=== PATIENT | female | born 1945 | race Caucasian/White ===

== ENCOUNTER 2018-05-29 14:39 | Emergency (ER) | payer MEDICARE, BC ==
[~2018-05-29] VITALS: Ht 160 cm; Wt 45.5 kg
[2018-05-29] MEDS ORDERED: normal saline 1000ML IV soln IVB ONE (15:10)
[2018-05-29] MEDS ORDERED: BENA20TA82 PO (15:20)
[2018-05-29] MEDS ORDERED: LABE100T5 PO (15:20)
[2018-05-29] MEDS ORDERED: AMLO10TA PO (15:20)
[2018-05-29] MEDS ORDERED: VAL5T PO (15:20)
[2018-05-29] MEDS ORDERED: ASPI-1053 PO (15:20)
[2018-05-29] MEDS ORDERED: TIOT4MIS5 IH (15:20)
[2018-05-29] MEDS ORDERED: METH-360 PO (15:20)
[2018-05-29] MEDS ORDERED: HYDR-4384 PO (15:20)
[2018-05-29] MEDS ORDERED: ZOLP10TA5 PO (15:20)
[2018-05-29] MEDS ORDERED: DULO-31 PO (15:20)
[2018-05-29] MEDS ORDERED: ALBU8.5H8 INH (15:20)
[2018-05-29] MEDS ORDERED: CYAN10006 IM (15:20)
[2018-05-29 15:39] LABS: BASOPHILS % (AUTO) 0.4 % (0-1); EOSINOPHILS # (AUTO) 0.1 X10'3 (0-0.9); EOSINOPHILS % (AUTO) 1.2 % (0-6); HEMATOCRIT 33.4 % (35.0-45.0); HEMOGLOBIN 11.1 g/dl (12.0-16.0); LYMPHOCYTES # (AUTO) 0.5 X10'3 (1.1-4.8); LYMPHOCYTES % (AUTO) 7.1 % (21-51); MEAN CORPUSCULAR HEMOGLOBIN 30.7 PG (27.0-31.0); MEAN CORPUSCULAR HGB CONC 33.4 % (33.0-36.5); MEAN CORPUSCULAR VOLUME 91.8 FL (78-98); MEAN PLATELET VOLUME 7.1 FL (7.4-10.4); MONOCYTES # (AUTO) 0.3 X10'3 (0-0.9); MONOCYTES % (AUTO) 4.8 % (2-12); NEUTROPHILS # (AUTO) 6.3 X10'3 (1.8-7.7); NEUTROPHILS % (AUTO) 86.5 % (42-75); PLATELET COUNT 186 X10'3 (140-440); RED BLOOD COUNT 3.63 X10'6 (4.20-5.60); RED CELL DISTRIBUTION WIDTH 14.9 % (11.5-14.5); WHITE BLOOD COUNT 7.2 X10'3 (4.5-11.0)
[2018-05-29 15:42] LABS: ALANINE AMINOTRANSFERASE 57 U/L (12-78); ALBUMIN 3.4 G/DL (3.4-5.0); ALBUMIN/GLOBULIN RATIO 1.4 (1.1-1.5); ALKALINE PHOSPHATASE 84 IU/L (46-116); ANION GAP 8 (8-16); ASPARTATE AMINO TRANSFERASE 94 U/L (10-37); BILIRUBIN,TOTAL 0.4 MG/DL (0.1-1.0); BLOOD UREA NITROGEN 32 MG/DL (7-18); BUN/CREATININE RATIO 33.3 (6.6-38.0); CALCIUM 7.9 MG/DL (8.5-10.1); CHLORIDE 104 MMOL/L (99-107); CREATININE 0.96 MG/DL (0.40-0.90); GLUCOSE 105 MG/DL (70-104); POTASSIUM 3.5 MMOL/L (3.5-5.1); SODIUM 143 MMOL/L (135-145); TOTAL CARBON DIOXIDE 31.2 MMOL/L (24-32); TOTAL PROTEIN 5.8 G/DL (6.4-8.2); eGFR 57 ML/MIN
[2018-05-29 15:50] LABS: ETHANOL < 0.010 GM/DL (0.0-0.010)
[2018-05-29 16:24] LABS: CLARITY,URINE CLEAR (Clear); COLOR,URINE YELLOW (Yellow); GLUCOSE, URINE NEGATIVE (Neg); KETONES,URINE NEGATIVE (Neg); LEUKOCYTE ESTERASE ,URINE NEGATIVE (Neg); NITRITES, URINE NEGATIVE (Neg); OCCULT BLOOD,URINE NEGATIVE (Neg); PH,URINE 5.5 (4.8-8.0); PROTEIN,URINE NEGATIVE (Neg); UROBILINOGEN,URINE 0.2 E.U/dL (0.2-1.0)
[2018-05-29 16:30] LABS: UA COLLECTION TYPE STRAIGHT CATH
[2018-05-29 16:41] LABS: URINE AMPHETAMINE SCREEN NEGATIVE (Neg); URINE BARBITUATE SCREEN NEGATIVE (Neg); URINE BENZODIAZEPINES SCREEN POSITIVE (Neg); URINE CANNABINOID SCREEN NEGATIVE (Neg); URINE COCAINE SCREEN NEGATIVE (Neg); URINE METHADONE SCREEN NEGATIVE (Neg); URINE OPIATE SCREEN POSITIVE (Neg); URINE PHENCYCLIDINE SCREEN NEGATIVE (Neg)
[2018-05-29 16:48] LABS: ACETAMINOPHEN 12.3 UG/ML (10-30)
[2018-05-29] MEDS ORDERED: acetylcysteine 200 MG/ml 4ml vial PO ONE (19:20)
[2018-05-29] MEDS ORDERED: diazepam 5mg tablet PO PRN (21:10)
[2018-05-29] MEDS ORDERED: cyanocobalamin 1,000 mcg/ml inj IM SCH (21:10)
[2018-05-29] MEDS ORDERED: albuterol 2.5 MG/3 ML nebule NEB PRN (21:20)
[2018-05-29] MEDS ORDERED: cyclobenzaprine 10mg tablet PO PRN (21:25)
[2018-05-29 21:31] LABS: ACETAMINOPHEN < 2.0 UG/ML (10-30); ALANINE AMINOTRANSFERASE 59 U/L (12-78); ALBUMIN 3.3 G/DL (3.4-5.0); ALBUMIN/GLOBULIN RATIO 1.4 (1.1-1.5); ALKALINE PHOSPHATASE 84 IU/L (46-116); ASPARTATE AMINO TRANSFERASE 78 U/L (10-37); BILIRUBIN,DIRECT 0.1 MG/DL (0-0.3); BILIRUBIN,TOTAL 0.5 MG/DL (0.1-1.0); TOTAL PROTEIN 5.6 G/DL (6.4-8.2)
[2018-05-29] MEDS: lisinopril 20mg tablet PO SCH (21:32)
[2018-05-30] MEDS: ipratropium 0.5 MG/2.5ML nebule IH SCH ×4 (02:00→20:00)
[2018-05-30] MEDS: amLODIPine 5mg tablet PO SCH (08:23)
[2018-05-30] MEDS: aspirin 81mg tab.chew PO SCH (08:23)
[2018-05-30] MEDS: labetalol 100mg tablet PO SCH ×2 (08:23→20:05)
[2018-05-30] MEDS: duloxetine 30mg CAPSULE.DR PO SCH (08:26)
[2018-05-30] MEDS: lisinopril 20mg tablet PO SCH (20:05)
[2018-05-30] MEDS ORDERED: QUEtiapine 25mg tablet PO ONE ×2 (22:05→23:15)
[2018-05-30] MEDS ORDERED: quetiapine 100mg tablet PO ONE (23:00)
[2018-05-31] MEDS ORDERED: zolpidem 5mg tablet PO ONE (00:15)
[2018-05-31] MEDS: ipratropium 0.5 MG/2.5ML nebule IH SCH ×3 (02:00→14:00)
[2018-05-31] MEDS: duloxetine 30mg CAPSULE.DR PO SCH (08:16)
[2018-05-31] MEDS: aspirin 81mg tab.chew PO SCH (08:16)
[2018-05-31] MEDS: amLODIPine 5mg tablet PO SCH (08:17)
[2018-05-31] MEDS: labetalol 100mg tablet PO SCH (08:17)
[2018-05-31] MEDS ORDERED: ASPI-778 PO (11:36)
[2018-05-31 16:16] VITALS: BP 148/84
== END 2018-05-31 16:20 ==
LOC: ER 14:39
DX: T42.6X2A Poisoning by other antiepileptic and sedative-hypnotic drugs, intentional self-harm, initial encounter (principal); R45.851 Suicidal ideations; I10 Essential (primary) hypertension; G89.29 Other chronic pain; F32.9 Major depressive disorder, single episode, unspecified; Z79.82 Long term (current) use of aspirin; Z79.899 Other long term (current) drug therapy; Y92.89 Other specified places as the place of occurrence of the external cause
CPT/HCPCS: 36415; 70450; 80053; 80076; 80305; 80320; 80329; 81003; 84443; 85025; 94760; 96360; 96372; 99285; J3420

== ENCOUNTER 2018-05-31 15:17 | Inpatient (IN) | payer MEDICARE, BC ==
[~2018-05-31] VITALS: Ht 160 cm; Wt 48.4 kg
[~2018-05-31 15:17] MED LIST: ALBU8.5H8 INH; AMLO10TA PO; ASPI-1053 PO; ASPI-778 PO; BENA20TA82 PO; CYAN10006 IM; DULO-31 PO; HYDR-4384 PO; LABE100T5 PO; METH-360 PO; TIOT4MIS5 IH; VAL5T PO; ZOLP10TA5 PO
[2018-05-31] MEDS ORDERED: mag hydrox/Alum hydrox/simeth 30ml oral suspension PO PRN (16:30)
[2018-05-31] MEDS ORDERED: magnesium hydroxide 30ml (MOM) UD suspension PO PRN (16:30)
[2018-05-31] MEDS ORDERED: acetaminophen 325mg tablet PO PRN ×2 (16:30)
[2018-05-31 16:35] VITALS: BP 159/82
[2018-05-31 19:00] VITALS: BP 112/61
[2018-05-31] MEDS ORDERED: albuterol 2.5 MG/3 ML nebule NEB PRN (20:40)
[2018-05-31] MEDS ORDERED: aspirin/acetaminophen/caffeine tablet PO PRN (20:40)
[2018-05-31] MEDS ORDERED: HYDROcodone/acetaminophen 5mg/325mg tablet PO PRN (20:45)
[2018-05-31] MEDS ORDERED: zolpidem 5mg tablet PO PRN (20:50)
[2018-05-31] MEDS: lisinopril 20mg tablet PO SCH (21:12)
[2018-05-31] MEDS: cyclobenzaprine 10mg tablet PO PRN (21:19)
[2018-06-01] MEDS: ipratropium 0.5 MG/2.5ML nebule IH SCH ×4 (02:00→20:00)
[2018-06-01] MEDS: amLODIPine 5mg tablet PO SCH (08:07)
[2018-06-01] MEDS: duloxetine 30mg CAPSULE.DR PO SCH (08:07)
[2018-06-01] MEDS: labetalol 100mg tablet PO SCH ×2 (08:07→20:45)
[2018-06-01] MEDS ORDERED: aspirin 81mg tab.chew PO SCH (08:30)
[2018-06-01 08:41] LABS: CHOL/HDL RATIO 2.4 (0.00-4.99); CHOLESTEROL 154 MG/DL (0-200); HDL CHOLESTEROL 63 MG/DL (35-60); LDL CHOLESTEROL 81 MG/DL (50-100); TRIGLYCERIDES 59 MG/DL (20-135)
[2018-06-01 09:05] LABS: HEMOGLOBIN A1C 5.2 % (4.5-6.2)
[2018-06-01] MEDS ORDERED: ACETAMINOPHEN PO PRN (10:00)
[2018-06-01] MEDS ORDERED: cyanocobalamin 1,000 mcg/ml inj IM SCH (10:00)
[2018-06-01] MEDS ORDERED: cyclobenzaprine 10mg tablet PO PRN (10:00)
[2018-06-01] MEDS ORDERED: [UNRECOGNIZED DRUG - OTHER] PO PRN (10:00)
[2018-06-01] MEDS ORDERED: non-formulary drug (Benazepril Hcl* (Lotensin*) 1 TAB) PO SCH (10:00)
[2018-06-01] MEDS ORDERED: ASPIRIN PO PRN (10:00)
[2018-06-01] MEDS ORDERED: diazepam 5mg tablet PO PRN (10:00)
[2018-06-01] MEDS ORDERED: CAFFEINE PO PRN (10:00)
[2018-06-01] MEDS ORDERED: non-formulary drug (Albuterol Sulfate (Proair Hfa) 2 PUFFS) INH SCH (10:00)
[2018-06-01] MEDS: cyclobenzaprine 10mg tablet PO PRN (14:51)
[2018-06-01 19:00] VITALS: BP 156/76
[2018-06-01] MEDS: diazepam 5mg tablet PO PRN (19:24)
[2018-06-01] MEDS ORDERED: labetalol 100mg tablet PO SCH (20:00)
[2018-06-01] MEDS: lisinopril 20mg tablet PO SCH (20:45)
[2018-06-01] MEDS ORDERED: zolpidem 5mg tablet PO PRN (21:00)
[2018-06-01] MEDS ORDERED: mirtazapine 15mg tablet PO SCH (21:00)
[2018-06-01] MEDS ORDERED: traZODone 50mg tablet PO ONE (22:30)
[2018-06-02] MEDS: ipratropium 0.5 MG/2.5ML nebule IH SCH ×4 (03:07→19:56)
[2018-06-02] MEDS ORDERED: non-formulary drug (Amlodipine Besylate 1 TABLET) PO SCH (08:00)
[2018-06-02] MEDS ORDERED: duloxetine 30mg CAPSULE.DR PO SCH (08:00)
[2018-06-02] MEDS ORDERED: TIOTROPIUM BROMIDE 2.5 MCG IH SCH (08:00)
[2018-06-02] MEDS: labetalol 100mg tablet PO SCH ×2 (08:43→20:20)
[2018-06-02] MEDS: aspirin 81mg tablet.DR PO SCH (08:43)
[2018-06-02] MEDS: duloxetine 30mg CAPSULE.DR PO SCH (08:43)
[2018-06-02] MEDS: amLODIPine 5mg tablet PO SCH (08:43)
[2018-06-02] MEDS: cyclobenzaprine 10mg tablet PO PRN (15:30)
[2018-06-02 19:00] VITALS: BP 137/82
[2018-06-02] MEDS ORDERED: traZODone 50mg tablet PO SCH (20:00)
[2018-06-02] MEDS: lisinopril 20mg tablet PO SCH (20:19)
[2018-06-02] MEDS ORDERED: mirtazapine 15mg tablet PO SCH (21:00)
[2018-06-02] MEDS: diazepam 5mg tablet PO PRN (21:53)
[2018-06-03] MEDS: ipratropium 0.5 MG/2.5ML nebule IH SCH ×2 (02:00→08:00)
[2018-06-03] MEDS: amLODIPine 5mg tablet PO SCH (08:18)
[2018-06-03] MEDS: labetalol 100mg tablet PO SCH (08:18)
[2018-06-03] MEDS: duloxetine 30mg CAPSULE.DR PO SCH (08:19)
[2018-06-03] MEDS: aspirin 81mg tablet.DR PO SCH (08:19)
[2018-06-03] MEDS ORDERED: CYCL-1 PO (14:10)
[2018-06-03] MEDS ORDERED: MIRT15TA8 PO (14:10)
[2018-06-03] MEDS ORDERED: METH-360 PO (14:10)
[2018-06-03] MEDS ORDERED: TRAZ-218 PO (14:11)
[2018-06-29] MEDS ORDERED: cyanocobalamin 1,000 mcg/ml inj IM SCH (10:00)
== END 2018-06-03 16:03 | disposition home or self-care (01) | DRG 885 ==
LOC: ADULT MH 15:17
PROVIDERS: ADMIT Psychiatry & Neurology Psychiatry; ATTEND Psychiatry & Neurology Psychiatry
DX: F33.2 Major depressive disorder, recurrent severe without psychotic features (principal); J96.11 Chronic respiratory failure with hypoxia; F34.1 Dysthymic disorder; F41.1 Generalized anxiety disorder; G89.21 Chronic pain due to trauma; T42.6X2D Poisoning by other antiepileptic and sedative-hypnotic drugs, intentional self-harm, subsequent encounter; J44.9 Chronic obstructive pulmonary disease, unspecified; I10 Essential (primary) hypertension; Z90.710 Acquired absence of both cervix and uterus; Z98.84 Bariatric surgery status; Z79.899 Other long term (current) drug therapy; Z79.82 Long term (current) use of aspirin; Z87.891 Personal history of nicotine dependence; Z83.3 Family history of diabetes mellitus; Y92.89 Other specified places as the place of occurrence of the external cause
CPT/HCPCS: 36415; 80061; 83036; 87070; 94640; 94760

== ENCOUNTER 2018-10-08 16:25 | Inpatient (IN) | payer MEDICARE, BC | END 2018-10-11 13:00 | disposition home or self-care (01) | LOC: ER 16:25 → ED HOLD 20:31 → SUR 3N 21:38 | DX: I16.0 Hypertensive urgency (principal); I20.0 Unstable angina; I50.9 Heart failure, unspecified; I11.0 Hypertensive heart disease with heart failure; I27.20 Pulmonary hypertension, unspecified ==